=== PATIENT | female | born 1950 | race Caucasian/White ===

== ENCOUNTER 2017-01-18 21:48 | Emergency (ER) | payer MEDICARE ==
[~2017-01-18] VITALS: Ht 165.1 cm; Wt 106.3 kg
[~2017-01-18 21:48] MED LIST: ENAL20TA81 PO; FISH1000 PO; HYDR50TA5 PO; LORT5TAB PO; PROP80TA PO; PROT40TA PO; PROZ20CA11 PO
[2017-01-18 21:54] VITALS: BP 236/107; PULSE 80; RESP 20; TEMP 98.7; O2SAT 96
[2017-01-18 22:25] VITALS: BP 207/95; PULSE 68; RESP 16; O2SAT 96
[2017-01-18] MEDS ORDERED: PROP80C PO (22:41)
[2017-01-18] MEDS ORDERED: HYDR50TA3 PO (22:41)
[2017-01-18] MEDS ORDERED: OMEP20CA2 PO (22:41)
[2017-01-18] MEDS ORDERED: FLUO20CA12 PO (22:41)
[2017-01-18] MEDS ORDERED: ENAL20TA PO (22:41)
--- NOTE | 2017-01-18 22:45 | PD ---
HPI Chief Complaint: ENT Complaint Time Seen by Provider: 22:23 Travel History International Travel<30 days: No Contact w/Intl Traveler<30days: No Traveled to known affect area: No History of Present Illness HPI The patient is a 66-year-old female that 2 days ago and got part of a hearing aid piece stuck in her left ear. She used a Q-tip to try and get it out and knows that she pushed it all the way in farther. She is not on any anticoagulants. She denies any bleeding. The patient states she had a white [place] drink prior to coming in. She does have a history of hypertension. She thinks that she may have accidentally missed taking her blood pressure medications this morning. PFSH Past Medical History Depression: Yes GERD: Yes Hiatal Hernia: Yes Hypertension: Yes Neurologic: Yes (ESSENTIAL TREMORS) : 2 Para: 2 Past Surgical History Appendectomy: Yes Cholecystectomy: Yes Social History Alcohol Use: Yes (1-2 DAILY) Tobacco Use: No Substance Use: No Allergies-Medications (Allergen,Severity, Reaction): Coded Allergies: No Known Allergies (Verified , 06/10/09) Reported Meds & Prescriptions Reported Meds & Active Scripts Active Lortab 5/500 (Acetaminophen/Hydrocodone Bitart) 5 Mg/500 Mg Tab 1 Tab PO Q4- 6HPRN FOR PAIN Reported Fish Oil 1,000 Mg Cap 1,000 Mg PO DAILY Hctz (Hydrochlorothiazide) 50 Mg Tab 50 Mg PO DAILY Protonix (Pantoprazole Sodium) 40 Mg Tabdr 40 Mg PO DAILY Vasotec (Enalapril Maleate) 20 Mg Tab 20 Mg PO DAILY Inderal (Propranolol HCl) 80 Mg Tab 80 Mg PO BID Prozac (Fluoxetine HCl) 20 Mg Cap 20 Mg PO DAILY Review of Systems Except as stated in HPI: all other systems reviewed are Neg Physical Exam Narrative GENERAL: Well-nourished, anxious appearing, well-developed patient in slight apparent distress with her left ear discomfort. Her blood pressure is 236/107 but the rest the vital signs are normal. SKIN: Focused skin assessment warm/dry. HEAD: Normocephalic. EYES: No scleral icterus. No injection or drainage. NECK: Supple, trachea midline. No JVD or lymphadenopathy. CARDIOVASCULAR: Regular rate and rhythm without murmurs, gallops, or rubs. RESPIRATORY: Breath sounds equal bilaterally. No accessory muscle use. GASTROINTESTINAL: Abdomen soft, non-tender, nondistended. MUSCULOSKELETAL: No cyanosis, or edema. BACK: Nontender without obvious deformity. No CVA tenderness. ENT: Left tympanic membrane shows a piece of rubber stuck all the way To the eardrum. Data Data Last Documented VS Vital Signs Date Time Temp Pulse Resp B/P (MAP) Pulse Ox O2 Delivery O2 Flow Rate FiO2 01/18/17 21:54 98.7 80 20 236/107 (150) 96 MDM Medical Decision Making Medical Screen Exam Complete: Yes Emergency Medical Condition: Yes Medical Record Reviewed: Yes Differential Diagnosis Foreign body left ear canal, perforation tympanic membrane, abrasion of ear canal, hypertension poor control, hypertension from noncompliance to medications , anxiety with hypertension Narrative Course The patient has a foreign body of the left ear canal. This was removed without a problem. There was no evidence of any ear canal abrasion or perforation of the tympanic membrane. Procedures Procedure Narrative Alligator forceps were used to remove the foreign body which was Eardrum. The patient tolerated the procedure well. The foreign body wrist removed intact, this was a piece of hearing aid which was soft plastic. Diagnosis Primary Impression: Foreign body in left ear Additional Impressions: Elevated blood pressure reading Anxiety Noncompliance with medication regimen Additional Instructions: Return if you have any problems but there appears to be no damage to the ear canal or tympanic membrane on examination. Follow-up with your primary care physician and have your blood pressure checked in his office, it was high tonight. Disposition: 01 DISCHARGE HOME Condition: Stable Vishal Musa MD Jan 18, 2017 22:45
[2017-01-18 22:56] VITALS: BP 196/95
== END 2017-01-18 23:01 | disposition home or self-care (01) ==
LOC: PHED 21:48
DX: T16.2XXA Foreign body in left ear, initial encounter (principal); I10 Essential (primary) hypertension; F41.9 Anxiety disorder, unspecified; Z91.14 Patient's other noncompliance with medication regimen
CPT/HCPCS: 69200